=== PATIENT | male | born 1995 | race Caucasian/White ===

== ENCOUNTER 2019-09-19 16:27 | Emergency (ER) | payer OTHER ==
[~2019-09-19] VITALS: Ht 172.7 cm; Wt 90.7 kg
[~2019-09-19 16:27] MED LIST: BENADRYL25 MG PO; DESENEX43 GM TOP; Pepcid40 MG PO; Permethrin60 GM TOP
[2019-09-19] MEDS ORDERED: Norco 5-325 Ta1 EACH PO (17:41)
[2019-09-19] MEDS ORDERED: Keflex500 MG PO (17:41)
== END 2019-09-19 18:23 | disposition home or self-care (01) ==
LOC: ER 16:27
DX: S97.112A Crushing injury of left great toe, initial encounter (principal); S97.122A Crushing injury of left lesser toe(s), initial encounter; W22.8XXA Striking against or struck by other objects, initial encounter
CPT/HCPCS: 73630; 99283-25; A9270-GY

== ENCOUNTER 2020-04-08 22:05 | Emergency (ER) | payer OTHER ==
[~2020-04-08] VITALS: Ht 172.7 cm; Wt 90.7 kg
[~2020-04-08 22:05] MED LIST changes: +Keflex500 MG PO; +Norco 5-325 Ta1 EACH PO
== END 2020-04-09 01:15 | disposition left against medical advice (07) ==
LOC: ER 22:05
DX: Z53.21 Procedure and treatment not carried out due to patient leaving prior to being seen by health care provider (principal)